=== PATIENT | female | born 1955 | race Caucasian/White ===

== ENCOUNTER 2019-11-09 08:01 | Outpatient (CLI) | payer BC, SELFPAY ==
--- NOTE | ~2019-11-09 | MM_ITS ---
EXAMINATION: MM screening jackie BI w cheng HISTORY: Screening mammogram TECHNIQUE: Craniocaudal and mediolateral oblique 3-D tomosynthesis images were obtained and synthetic 2-D images were generated. CAD analysis was submitted and interpreted. COMPARISON: 08/27/2018, 06/24/2017 bilateral digital screening mammogram examinations BREAST PARENCHYMAL COMPOSITION: The breasts are heterogeneously dense, which may obscure small masses . FINDINGS: There is a biopsy marker on the left; history of prior benign left breast biopsy. Stable fi broglandular asymmetry. There is no evidence of suspicious mass, calcification, or interval crm solution architect ural distortion to suggest malignancy in either breast. There has been no suspicious interval change. IMPRESSION: 1. No mammographic evidence of malignancy. 2. Recommend routine screening mammography in one year. BI-RADS Category 2: Benign finding(s). Reviewed, dictated and finalized at location A.
== END 2019-11-09 08:02 | disposition home or self-care (01) ==
PROVIDERS: PCP Family Medicine; Visit Provider Obstetrics & Gynecology Gynecology
DX: Z12.31 Encounter for screening mammogram for malignant neoplasm of breast (principal)
CPT/HCPCS: 77063; 77067

== ENCOUNTER 2020-02-16 09:43 | Outpatient (CLI) | payer BC, SELFPAY ==
--- NOTE | ~2020-02-16 | US_ITS ---
EXAMINATION: US thyroid EXAM DATE: 02/16/2020 10:49 INDICATION: Nontoxic multinodular goiter. TECHNIQUE: Multiple grayscale and Doppler images of the thyroid were obtained (by a technologist who performed the scan) and subsequently reviewed. Individual nodules and recommendations may be reporte d in accordance with TI-RADS system as designated by the 2017 ACR White Paper TI-RADS committee. Comp arison is made to prior examination from 02/16/2019, 12/17/2017. FINDINGS: The right thyroid lobe measures 4.1 x 1.4 x 1.2 cm, the left measuring 3.6 x 1.3 x 1.0 cm. These dime nsions are within normal size limits. Again there are scattered thyroid nodules, with largest in the right thyroid lobe category TR 3, unchanged in size at 1.1 cm. These are not likely clinically signif icant. IMPRESSION: 1. Stable thyroid nodules, not likely clinically significant. Reviewed, dictated and finalized at location A.
[2020-02-16 11:39] LABS: Anion Gap 5 mmol/L (8-16); Blood Urea Nitrogen 13 mg/dL (7-17); Calcium 9.1 mg/dL (8.4-10.2); Carbon Dioxide 29 mmol/L (22-30); Chloride 105 mmol/L (98-107); Estimated Glomerular Filt Rate > 60; Glucose 95 mg/dL (65-105); Potassium 4.4 mmol/L (3.4-5.0); Sodium 139 mmol/L (137-145)
[2020-02-16 12:21] LABS: Free T4 Free Thyroxine 1.15 ng/mL (0.78-2.19); Vitamin D 25 Hydroxy 76.7 ng/mL
[2020-02-20 07:12] LABS: Triiodothyronine T3 Free 3.4 pg/mL (2.3-4.2)
== END 2020-02-16 09:45 | disposition home or self-care (01) ==
PROVIDERS: PCP Family Medicine
DX: Z00.00 Encounter for general adult medical examination without abnormal findings (principal); E04.2 Nontoxic multinodular goiter; E03.9 Hypothyroidism, unspecified; E55.9 Vitamin D deficiency, unspecified
CPT/HCPCS: 36415; 76536; 80048; 82306; 84439; 84443; 84481

== ENCOUNTER → 2020-11-21 14:03 | Outpatient (CLI) | payer BC, SELFPAY ==
--- NOTE | ~2020-11-21 | US_ITS ---
EXAMINATION: US transvaginal DATE: 11/21/2020 14:32 INDICATION: Postmenopausal bleeding Comparison:No prior studies for comparison. TECHNIQUE: Multiple transabdominal and endovaginal sonographic images of the pelvis performed. FINDINGS: The uterus measures 4.5 x 2.3 x 3.4 cm. The endometrial complex measures 6 mm. The right ovary measures 9.8 x 4.9 x 7.2 cm and the left ovary measures 3.1 x 2.4 x 3.2 cm. There are multiple complex cystic and mixed solid and cystic masses of the right ovary. Largest complex mass m easures 4.2 cm. There is a similar complex partially solid/cystic mass of the left ovary measuring 2. 4 cm greatest dimension. There is no free fluid in the pelvis. There are no abnormal masses seen on either side. IMPRESSION: 1. Multiple bilateral ovarian masses, some of which are mixed solid and cystic measuring up to 4.2 cm in the right ovary and 2.4 cm and the left ovary. Although these may represent complicated functiona l cyst, ovarian cystadenoma/cystadenocarcinoma should be considered given the postmenopausal status r ecommend surgical consultation. 2: Thickened endomtrial complex. The differential diagnosis includes endometrial hyperplasia, polyp a nd carcinoma. Biopsy is recommended. Reviewed, dictated and finalized at location A. IMPRESSION: 1. Multiple bilateral ovarian masses, some of which are mixed solid and cystic measuring up to 4.2 cm in the right ovary and 2.4 cm and the left ovary. Althou gh these may represent complicated functional cyst, ovarian cystadenoma/cystade nocarcinoma should be considered given the postmenopausal status recommend surg ical consultation. 2: Thickened endomtrial complex. The differential diagnosis includes endometria l hyperplasia, polyp and carcinoma. Biopsy is recommended.
== END ==
PROVIDERS: Visit Provider Nurse Practitioner
DX: N95.0 Postmenopausal bleeding (principal)
CPT/HCPCS: 76830

== ENCOUNTER 2021-01-07 08:46 | Outpatient (CLI) | payer BC, SELFPAY ==
--- NOTE | ~2021-01-07 | DEXA_ITS ---
Bone Density Report Name: Madeline Warren Age: 65 Sex: Female Ethnicity: White Date of : 1955 Indication: postmenopausal; Referring Provider: EDUARD SAEZ Study: Bone densitometry was performed. Exam Date: January 07, 2021 Accession number: [id number] Bone Density: Region BMD T-score Z-score Classification AP Spine (L1-L4) 0.913 -1.2 0.5 Osteopenia Femoral Neck (Left) 0.707 -1.3 0.2 Osteopenia Total Hip (Left) 0.920 -0.2 1.0 Normal Total Hip Bilateral Avg 0.903 -0.4 0.8 Normal Femoral Neck (Right) 0.657 -1.7 -0.3 Osteopenia Total Hip (Right) 0.884 -0.5 0.7 Normal World Health Organization criteria for BMD impression classify patients as: Normal (T-score at or above -1.0), Osteopenia (T-score between -1.0 and -2.5), or Osteoporosis (T-score at or below -2.5). 10-year Fracture Risk(1): Major Osteoporotic Fracture 8.8% Hip Fracture 1.1% Reported Risk Factors: [place] (), Neck BMD=0.657, BMI=22.1 (1) FRAX(R) Version 3.08. Fracture probability calculated for an untreated patient. Fracture probability may be lower if the patient has received treatment. Clinical Information Provided by Patient: Patient maximum height was 63.5 Menopause Age: 54 Drinks caffeinated beverages Onset of menses at age 14 Number of children 3 Impression: The patient has low bone mass, based on the Right Femoral Neck T-score. The patient has an estimated ten-year risk of hip fracture of 1.1% and an estimated ten-year risk of major fracture of 8.8%, based on the WHO FRAX algorithm. Discussion: BONE DENSITY IS LOW AT ONE OR MORE SKELETAL SITES. This patient's lowest T-score is low at one or more skeletal sites. It meets the World Health Organization's (WHO) criteria for ?low bone mass? (T-score between -1.0 and -2.5). The patient's 10-year risk of fracture as calculated by FRAX is less than the threshold where pharmacological therapy is recommended by the National Osteoporosis Foundation (NOF). However, all treatment decisions require clinical judgment and consideration of individual patient factors, including patient preferences, comorbidities, previous drug use, risk factors not captured in the FRAX model (e.g., frailty, falls, vitamin D deficiency, increased bone turnover, interval significant decline in bone density) and possible under or overestimation of fracture risk by FRAX. The patient should follow a healthful lifestyle (good nutrition with adequate calcium and vitamin D, and appropriate weight-bearing exercise). Follow-Up: Consider repeating this study in 2 to 3 years to reassess this patient's status, or sooner if there is some new clinical indication. Reported by: [facility] on 01/07/2021 9:29:00 AM. Reviewed, dictated and finalized at location A.
--- NOTE | ~2021-01-07 | MM_ITS ---
EXAMINATION: MM screening jackie BI w cheng HISTORY: Screening TECHNIQUE: Craniocaudal and mediolateral oblique 3-D tomosynthesis images were obtained and synthetic 2-D images were generated. CAD analysis was submitted and interpreted. COMPARISON: Comparison to multiple prior studies sequentially, with oldest reviewed study dated 03/06. BREAST PARENCHYMAL COMPOSITION: There are scattered areas of fibroglandular density. FINDINGS: There is no evidence of suspicious mass, calcification, or architectural distortion to sugg est malignancy in either breast. There has been no suspicious interval change. IMPRESSION: 1. No mammographic evidence of malignancy. 2. Recommend routine screening mammography in one year. BI-RADS Category 1: Negative Reviewed, dictated and finalized at location A.
== END 2021-01-07 08:47 | disposition home or self-care (01) ==
PROVIDERS: PCP Family Medicine; Visit Provider Obstetrics & Gynecology Gynecology
DX: Z12.31 Encounter for screening mammogram for malignant neoplasm of breast (principal); Z78.0 Asymptomatic menopausal state; M85.88 Other specified disorders of bone density and structure, other site; M85.852 Other specified disorders of bone density and structure, left thigh; M85.851 Other specified disorders of bone density and structure, right thigh
CPT/HCPCS: 77063; 77067; 77080

== ENCOUNTER 2021-01-25 10:04 | Outpatient (CLI) | payer BC, SELFPAY ==
--- NOTE | 2021-01-25 10:00 | ECG_ITS ---
Measurements Intervals [place] Rate: 63 P: 54 IN: 146 QRS: 25 QRSD: 93 T: 25 QT: 378 QTc: 389 Interpretive Statements SINUS RHYTHM POSSIBLE LEFT ATRIAL ENLARGEMENT INCOMPLETE RIGHT BUNDLE BRANCH BLOCK DELAYED PRECORDIAL R/S TRANSITION BORDERLINE ECG Electronically Signed On 01-25-2021 10:18:24 CDT by Bart Villar D.O.
== END 2021-01-25 10:05 | disposition home or self-care (01) ==
LOC: ANHSURGERY 10:07
PROVIDERS: PCP Family Medicine; Visit Provider Obstetrics & Gynecology Gynecology
DX: E78.00 Pure hypercholesterolemia, unspecified (principal); Z01.818 Encounter for other preprocedural examination; I45.10 Unspecified right bundle-branch block
CPT/HCPCS: 93005

== ENCOUNTER 2021-01-28 00:22 | Day surgery (SDC) | payer BC, SELFPAY ==
[2021-01-23 09:55] VITALS: BMI 68.9
[2021-01-28] VITALS (10 sets, daily range): BP systolic 98–117; BP diastolic 47–66; PULSE 47–64; RESP 10–20; TEMP 36.6–36.8; O2SAT 97–100; BMI 22.8
[2021-01-28] MEDS: ACETAMINOPHEN 500 MG TABLET 1000 MG PO (06:40)
[2021-01-28] MEDS: LACTATED RINGERS 1,000 ML 30 ML IV CONT (07:05)
[2021-01-28] MEDS: KETOROLAC 15 MG/ML VIAL (*BKC) IV PUSH (07:06)
--- NOTE | 2021-01-28 07:13 | PM.HPGS ---
History of Present Illness History of Present Illness Consent: Risks, benefits, and alternatives have been discussed and questions answered. Patient agrees to proceed with procedure. Chief complaint: Uterine Polyps, Bilateral Ovarian Cysts Narrative: Madeline Warren is a 66 year old female With postmenopausal bleeding who underwent hysteroscopy in the office which revealed a large polyp that was unable to be removed with the office equipment. Decision was made to proceed with excision in the operating room with MyoSure. In addition the patient had a pelvic ultrasound which reveals multiple complex cystic masses in the right ovary the largest of which was measuring 4.2cm there is a similar appearance to the left ovary with the largest measuring 2.4cm. CA 125 was 10.8. The biopsy and fragments from the office hysteroscope were benign. Risks of surgery including infection, bleeding, perforation of the uterus during hysteroscope, injury to internal organs such as bowel, bladder, ureters, etc, deep vein thrombosis and general anesthesia were reviewed. Possible pathology is discussed. The patient voices understanding and agrees to proceed. Review of Systems Review of Systems: not repeated day of surgery; patient states no changes in status Genitourinary: Genitourinary: Reports vaginal dryness Endocrine: Endocrine: Reports flushing PMFSH Past Medical History Medical History (Updated 01/28/21 @ 07:19 by Lily Sen MD) Arthritis High cholesterol Hypothyroid Seasonal allergies Thyroid nodule Surgical History Surgical History (Updated 02/07/20 @ 08:41 by Teetee De La Cruz CMA) History of arthroscopic knee surgery 2017 History of breast biopsy X2 97 and 99 History of D&C 1982 History of lumpectomy 1994 Family History Family History (Updated 03/25/16 @ 13:59 by DOCTOR UNKNOWN) Other Diabetes mellitus Family history of arthritis Family history of seizure disorder Hypertension Social History Social History Smoking status: Never smoker Second hand tobacco smoke exposure: No Alcohol intake: current Drinks per week: 2 Alcohol use details: WINE Substance use: never Living arrangements: with family Spiritual care concerns: No Meds Home Medications and Allergies Home Medications Medication Instructions Recorded Confirmed Type ascorbic acid (vitamin C) 500 mg 500 mg PO DAILY 02/07/20 01/28/21 History capsule,extended release atorvastatin 10 mg tablet 10 mg PO DAILY 02/07/20 01/28/21 History cetirizine 10 mg capsule 10 mg PO DAILY 02/07/20 01/28/21 History cholecalciferol (vitamin D3) 10 10 mcg PO DAILY 02/07/20 01/28/21 History mcg (400 unit) capsule levothyroxine 75 mcg capsule 75 mcg PO DAILY 02/07/20 01/28/21 History vitamin B complex 1 tablet PO DAILY 02/07/20 01/28/21 History calcium carbonate [Caltrate 600] 600 mg PO DAILY 01/23/21 01/28/21 History Allergies Allergy/AdvReac Type Severity Reaction Status Date / Time tramadol AdvReac Mild Anxiety Verified 01/28/21 06:37 Assessment and Plan Assessment and plan (1) Post-menopausal bleeding: Code(s): N95.0 - Postmenopausal bleeding Status: Acute Assessment and Plan: proceed with hysteroscopy D&C with MyoSure (2) Ovarian cystic mass: Code(s): N83.209 - Unspecified ovarian cyst, unspecified side Status: Acute Assessment and Plan: proceed with laparoscopic bilateral salpingo-oophorectomy
--- NOTE | 2021-01-28 07:16 | WPDANESEPPF ---
Anes - Initial Pre Proc Eval Procedure: Operation Date: 01/28/21 07:30 Proposed Procedures p Hysteroscopy with Myosure, Laparoscopic Bilateral Salpingo-oophorectomy - Lily Sen MD Date/Time: 01/28/21 07:16 Surgeon: Lily Sen MD Pre Op Diagnosis: Uterine Polyps, Bilateral Ovarian Cysts Patient Data Age: 66 Gender: F Height: 91.44 cm Weight: 57.61 kg Allergies Allergy/AdvReac Type Severity Reaction Status Date / Time tramadol AdvReac Mild Anxiety Verified 01/28/21 06:37 Home Medications Medication Instructions Recorded Confirmed Type ascorbic acid (vitamin C) 500 mg 500 mg PO DAILY 02/07/20 01/28/21 History capsule,extended release atorvastatin 10 mg tablet 10 mg PO DAILY 02/07/20 01/28/21 History cetirizine 10 mg capsule 10 mg PO DAILY 02/07/20 01/28/21 History cholecalciferol (vitamin D3) 10 10 mcg PO DAILY 02/07/20 01/28/21 History mcg (400 unit) capsule levothyroxine 75 mcg capsule 75 mcg PO DAILY 02/07/20 01/28/21 History vitamin B complex 1 tablet PO DAILY 02/07/20 01/28/21 History calcium carbonate [Caltrate 600] 600 mg PO DAILY 01/23/21 01/28/21 History Patient hx anesthesia problems: none Family hx anesthesia problems: none PMFSH Past Medical History Medical History Arthritis High cholesterol Hypothyroid Seasonal allergies Thyroid nodule Surgical History Surgical History History of arthroscopic knee surgery 2017 History of breast biopsy X2 97 and 99 History of D&C 1983 History of lumpectomy 1994 Family History Family History Other Diabetes mellitus Family history of arthritis Family history of seizure disorder Hypertension Social History Social History Smoking status: Never smoker Second hand tobacco smoke exposure: No Alcohol intake: current Drinks per week: 2 Alcohol use details: WINE Substance use: never Living arrangements: with family Spiritual care concerns: No Anes - Eval Final PreProcedure Day of Procedure 01/28/21 07:16 Patient weight: normal Heart: regular rate and rhythm Lungs: clear to auscultation Airway: Mallampati scale class II Neurological: alert and oriented Last oral intake: >/= 8 hours ASA classification: II Emergent: no Anesthetic plan: proceed Anesthesia type and monitoring: general ETT and standard monitoring Informed Consent: The patient's anesthetic plan and its attendant risks and benefits were discussed with the patient/family/POA. Questions were solicited and answers provided to the satisfaction of the patient/family/POA.
--- NOTE | 2021-01-28 07:21 | WPDHPUPDATE1 ---
History and Physical Update Update Date/Time: 01/28/21 07:21 History and Physical has been reviewed, including an updated exam of the patient. There are NO changes in the patient's condition. Risks, benefits, and alternatives have been discussed and questions answered. Patient agrees to proceed with procedure.
--- NOTE | 2021-01-28 08:34 | P.OP_ITS ---
Procedure Note - Detailed Date of Procedure 01/28/21 Pre-op Diagnosis Uterine Polyps, postmenopausal bleeding, Bilateral Ovarian Cysts Post-op Diagnosis same Procedure Performed Laparoscopic bilateral salpingo-oophorectomy; hysteroscopy Surgeon Lily Sen MD Anesthesia general Findings the uterus sounds to 6-1/2cm and is atrophic. No visible polyps are noted the lining is smooth lesions. Bilateral complex cystic masses on the ovaries the right is greater than the left. Description of Procedure The patient was taken to the operating room and placed under general anesthesia in the dorsal lithotomy position. She is prepped and draped in the usual sterile fashion. Bladder was drained with a red rubber catheter. [place] speculum was placed in the vagina and the cervix is grasped on the anterior lip with a tenaculum. [place] manipulator is placed. Speculum is removed. Attention is turned to the abdomen where a vertical skin incision is made at the base of the umbilicus. The Veress needle is placed and water drop test is normal. Opening patient pressure was 5mmHg. Pneumoperitoneum was obtained to a patient pressure of 15. The Veress needle is removed and the 5mm optic view trocar placed. Intra-abdominal placement is confirmed with the laparoscoped. Patient was placed in Trendelenburg position. The 5mm trocar is placed in the midline 2cm above the symphysis pubis. The blunt probe was used to bring the tubes and ovaries into view for inspection. Decision was made to place the 12mm trocar in the left lower quadrant. This was placed under direct visualization. The Endo-PATRICIA stapler was then used in to firings to remove each tube and ovary. The endobag was then used through the 12mm trocar and the large right tubal ovarian complex is placed in the bag rupturing the cystic portions the incision is extended to allow removal of the solid portions of the ovary. A 2nd bag is placed and the right tube and ovary are placed in the bag which was then removed intact. All instruments are removed the fascia in the left lower quadrant is closed using 0 Vicryl in a running fashion. Skin incisions are all closed using 3 0 Vicryl in a subcuticular fashion with Dermaflex over the incisions. Attention was returned to the perineum. The bivalve speculum was placed and the acorn manipulator removed. The uterus is sounded to 6-1/2cm. The cervix is serially dilated with [place]. The diagnostic hysteroscope was placed and although a large polyp was noted in the office hysteroscope there are no polyps noted. Previous biopsy was benign from the office therefore no additional biopsy is taken. All instruments are removed and the patient awakened from anesthesia. She was taken to the recovery room in stable condition. Sponge, needle, and instrument counts are correct per the OR staff. Estimated Blood Loss 5 Drains No Packing No Pathology yes ( Bilateral tubes and ovaries) Complications No immediate complications Condition stable Disposition PACU
[2021-01-28] MEDS: fentaNYL CITRATE INJ (*CRX) 100 MCG/2 ML VIAL 25 MCG IV PUSH ×4 (09:04→09:32)
[2021-01-28] MEDS: oxyCODONE HCL (*CRX) 5 MG TAB IR PO (10:07)
== END 2021-01-28 10:55 | disposition home or self-care (01) ==
PROVIDERS: PCP Family Medicine; Visit Provider Obstetrics & Gynecology Gynecology
PROC: 0UDB8ZZ Extraction of Endometrium, Via Natural or Artificial Opening Endoscopic (ICD-10-PCS; CPT 58558; principal; 2021-01-28 07:30)
DX: C56.1 Malignant neoplasm of right ovary (principal); C57.01 Malignant neoplasm of right fallopian tube; N85.8 Other specified noninflammatory disorders of uterus; E03.9 Hypothyroidism, unspecified; E78.00 Pure hypercholesterolemia, unspecified
CPT/HCPCS: 58661; 88305; 88307; A9270; J1100; J1885; J2250; J2405; J2704; J2710; J3010; J7030; J7120

== ENCOUNTER 2022-02-27 14:59 | Outpatient (NON) | payer MEDICARE, OTHER, SELFPAY | END 2022-02-28 14:14 | disposition home or self-care (01) | PROVIDERS: PCP Family Medicine; Visit Provider Nurse Practitioner | DX: L57.0 Actinic keratosis (principal) | CPT/HCPCS: 88305 ==